=== PATIENT | female | born 1980 | race Caucasian/White ===

== ENCOUNTER 2017-02-19 16:20 | Emergency (ER) | payer MEDICAID ==
[~2017-02-19] VITALS: Ht 160 cm; Wt 77.1 kg
[~2017-02-19 16:20] MED LIST: NORCO5 PO; ONDA4TAB5 PO
[2017-02-19 16:32] VITALS: BP_SYST 131
[2017-02-19] MEDS ORDERED: MAG HYDROX/AL HYDROX/SIMETH 30 ML, BELLADONNA ALKALOIDS/PHENOBARB 10 ML, LIDOCAINE VISC... PO ONE ×3 (18:00)
[2017-02-19 19:00] VITALS: BP_SYST 131
== END 2017-02-19 19:00 | disposition home or self-care (01) ==
LOC: SED 16:20
DX: K29.70 Gastritis, unspecified, without bleeding (principal); J45.909 Unspecified asthma, uncomplicated
CPT/HCPCS: 81025; 93005; 99283; J2001

== ENCOUNTER 2017-11-16 00:56 | Emergency (ER) | payer MEDICAID ==
[~2017-11-16] VITALS: Ht 157.5 cm; Wt 84.8 kg
[2017-11-16 00:59] VITALS: BP_SYST 139
[2017-11-16] MEDS ORDERED: LevALBUTEROL HCL 1.25 MG/0.5 ML *CONC.* VIAL.NEB (XOPENEX CONC.) INH ONE (02:30)
[2017-11-16 02:57] VITALS: BP_SYST 139
[2017-11-16] MEDS ORDERED: IBUPROFEN 600 MG TABLET PO ONE (03:30)
== END 2017-11-16 02:57 | disposition home or self-care (01) ==
LOC: SED 00:56
DX: J45.901 Unspecified asthma with (acute) exacerbation (principal); T78.40XA Allergy, unspecified, initial encounter; K21.9 Gastro-esophageal reflux disease without esophagitis; Z90.49 Acquired absence of other specified parts of digestive tract; X58.XXXA Exposure to other specified factors, initial encounter
CPT/HCPCS: 81025; 94640; 99283

== ENCOUNTER 2018-01-22 21:30 | Emergency (ER) | payer MEDICAID ==
[~2018-01-22] VITALS: Ht 157.5 cm; Wt 82.6 kg
[2018-01-22 21:35] VITALS: BP_SYST 143
[2018-01-22 22:35] VITALS: BP_SYST 126
== END 2018-01-22 22:35 | disposition home or self-care (01) ==
LOC: SED 21:30
DX: J40 Bronchitis, not specified as acute or chronic (principal); H65.91 Unspecified nonsuppurative otitis media, right ear; H81.10 Benign paroxysmal vertigo, unspecified ear; K21.9 Gastro-esophageal reflux disease without esophagitis; J45.909 Unspecified asthma, uncomplicated; Z90.49 Acquired absence of other specified parts of digestive tract
CPT/HCPCS: 71046-TC; 99284

== ENCOUNTER 2018-11-01 10:58 | Emergency (ER) | payer MEDICAID ==
[~2018-11-01] VITALS: Ht 160 cm; Wt 81.6 kg
[2018-11-01 10:58] VITALS: BP_SYST 149
--- NOTE | 2018-11-01 10:58 | NUR ---
BROUGHT BACK TO BED #6 AND TRIAGED. WILL ASSUME CARE
[2018-11-01] MEDS ORDERED: NACL 0.9% 1,000 ML IV ONE (11:25)
[2018-11-01] MEDS ORDERED: IPRATROPIUM BROM 0.5 MG/2.5 ML VIAL.NEB (ATROVENT) IH ONE (11:30)
[2018-11-01] MEDS ORDERED: ALBUTEROL SULFATE 0.083% 2.5 MG/3 ML VIAL.NEB IH ONE (11:30)
[2018-11-01] MEDS ORDERED: methylPREDNISolone SOD SUCC/PF 62.5 MG/ML VIAL IVP ONE (11:30)
--- NOTE | 2018-11-01 11:30 | NUR ---
DR BLAKE AT BEDSIDE FOR EVALUATION
--- NOTE | 2018-11-01 11:45 | NUR ---
RESTING QUIETLY, NO CHANGES, FAMILY AT BEDSIDE FOR SUPPORT
[2018-11-01 12:00] LABS: BASOPHILS # (AUTO) 0.1 K/uL (0.0-0.2); BASOPHILS % (AUTO) 0.8 % (0.0-2.0); EOSINOPHILS # (AUTO) 0.3 K/uL (0.0-0.4); EOSINOPHILS % (AUTO) 3.4 % (0.0-4.0); HEMATOCRIT 43.5 % (36-48); HEMOGLOBIN 14.1 g/dL (12.0-16.0); LYMPHOCYTES # (AUTO) 2.3 K/uL (1.0-5.5); LYMPHOCYTES % (AUTO) 30.5 % (20.5-51.5); MEAN CORPUSCULAR HEMOGLOBIN 28 pg (27-31); MEAN CORPUSCULAR HGB CONC 33 % (32-36); MEAN CORPUSCULAR VOLUME 85 fL (79.0-98.0); MONOCYTES # (AUTO) 0.5 K/uL (0.0-1.0); MONOCYTES % (AUTO) 6.1 % (1.7-9.3); NEUTROPHILS # (AUTO) 4.5 K/uL (1.8-7.7); NEUTROPHILS % (AUTO) 59.2 % (40.0-70.0); PLATELET COUNT (AUTO) 350 K/uL (130-430); RED BLOOD CELL COUNT(AUTO) 5.09 MIL/uL (4.2-6.2); RED CELL DISTRIBUTION WIDTH 12.2 % (9.0-15.0); WHITE BLOOD COUNT (AUTO) 7.7 K/uL (4.8-10.8)
[2018-11-01 12:12] LABS: CALCIUM 9.3 mg/dL (8.4-11.0); CREATININE 0.81 mg/dL (0.55-1.30); POTASSIUM 3.7 mmol/L (3.5-5.1)
[2018-11-01 12:17] LABS: ALBUMIN 3.9 g/dL (3.4-4.8); TOTAL BILIRUBIN 0.3 mg/dL (0.0-1.0)
--- NOTE | 2018-11-01 12:37 | NUR ---
NO CHANGES. PT STATES SHE IS FEELING A LITTLE BETTER, ALL QUESTIONS ANSWERED.
--- NOTE | 2018-11-01 13:01 | NUR ---
DR BLAKE AT BEDSIDE SPEAKING WITH PT RE: TEST RESULTS.
[2018-11-01 13:36] VITALS: BP_SYST 123
--- NOTE | 2018-11-01 13:36 | NUR ---
Patient given written and verbal discharge instructions and verbalizes understanding. ER MD discussed with patient the results and treatment provided. Patient in stable condition. ID arm band removed. IV catheter removed intact and dressing applied, no active bleeding. Rx of benadryl and docycycline given. Patient educated on pain management and to follow up with PMD. Pain Scale 0/10. Opportunity for questions provided and answered. Medication side effect fact sheet provided.
== END 2018-11-01 13:36 | disposition home or self-care (01) ==
LOC: SED 10:58
DX: F41.9 Anxiety disorder, unspecified (principal); L73.9 Follicular disorder, unspecified; J45.909 Unspecified asthma, uncomplicated; K21.9 Gastro-esophageal reflux disease without esophagitis
CPT/HCPCS: 36415; 80053; 82150; 83690; 85025; 94640; 96361; 96374; 99283; J2930; J7030; J7613

== ENCOUNTER 2018-12-29 12:16 | Emergency (ER) | payer MEDICAID ==
[~2018-12-29] VITALS: Ht 160 cm; Wt 77.1 kg
[2018-12-29 12:30] VITALS: BP_SYST 155
[2018-12-29 13:19] VITALS: BP_SYST 144
== END 2018-12-29 13:18 | disposition home or self-care (01) ==
LOC: SED 12:16
DX: J06.9 Acute upper respiratory infection, unspecified (principal); J45.909 Unspecified asthma, uncomplicated; K21.9 Gastro-esophageal reflux disease without esophagitis; R03.0 Elevated blood-pressure reading, without diagnosis of hypertension; Z79.899 Other long term (current) drug therapy
CPT/HCPCS: 99283

== ENCOUNTER 2019-03-24 04:42 | Emergency (ER) | payer MEDICAID ==
[~2019-03-24] VITALS: Ht 157.5 cm; Wt 85.3 kg
[2019-03-24 04:59] VITALS: BP_SYST 118
--- NOTE | 2019-03-24 04:59 | NUR ---
Patient to ER bed 8 to gown for evaluation. Side rails up.
--- NOTE | 2019-03-24 05:04 | NUR ---
ER Dr. Giles at bedside examining patient.
[2019-03-24] MEDS ORDERED: NACL 0.9% 1,000 ML IV ONE (05:14)
[2019-03-24] MEDS ORDERED: ONDANSETRON HCL 4 MG/2 ML VIAL IVP ONE (05:15)
[2019-03-24] MEDS ORDERED: MORPHINE 2 MG/ML INJ. SYRINGE IVP ONE (05:15)
[2019-03-24 05:24] LABS: BILIRUBIN,URINE NEGATIVE (NEGATIVE); BLOOD, URINE NEGATIVE (NEGATIVE); CLARITY/URINE SL HAZY (CLEAR); COLOR,URINE YELLOW (YELLOW); GLUCOSE,URINE NEGATIVE (NEGATIVE); KETONES,URINE NEGATIVE (NEGATIVE); LEUKOCYTE ESTERASE ,URINE NEGATIVE (NEGATIVE); NITRITE, URINE NEGATIVE (NEGATIVE); PH,URINE 6.5 (5.0-8.0); PROTEIN URINE NEGATIVE (NEGATIVE); UROBILINOGEN,URINE 0.2 (0.2-1.0)
--- NOTE | 2019-03-24 05:48 | NUR ---
Medications were given, pt tolerated well. No adverse reaction, will continue to monitor.
[2019-03-24 05:53] LABS: BASOPHILS # (AUTO) 0.1 K/uL (0.0-0.2); BASOPHILS % (AUTO) 0.7 % (0.0-2.0); EOSINOPHILS # (AUTO) 0.5 K/uL (0.0-0.4); EOSINOPHILS % (AUTO) 4.7 % (0.0-4.0); HEMATOCRIT 39.6 % (36-48); HEMOGLOBIN 13.1 g/dL (12.0-16.0); LYMPHOCYTES # (AUTO) 3.5 K/uL (1.0-5.5); LYMPHOCYTES % (AUTO) 34.1 % (20.5-51.5); MEAN CORPUSCULAR HEMOGLOBIN 28 pg (27-31); MEAN CORPUSCULAR HGB CONC 33 % (32-36); MEAN CORPUSCULAR VOLUME 85 fL (79.0-98.0); MONOCYTES # (AUTO) 0.7 K/uL (0.0-1.0); MONOCYTES % (AUTO) 7.1 % (1.7-9.3); NEUTROPHILS # (AUTO) 5.5 K/uL (1.8-7.7); NEUTROPHILS % (AUTO) 53.4 % (40.0-70.0); PLATELET COUNT (AUTO) 269 K/uL (130-430); RED BLOOD CELL COUNT(AUTO) 4.64 MIL/uL (4.2-6.2); RED CELL DISTRIBUTION WIDTH 13.4 % (9.0-15.0); WHITE BLOOD COUNT (AUTO) 10.3 K/uL (4.8-10.8)
[2019-03-24 06:05] LABS: CALCIUM 8.9 mg/dL (8.4-11.0); CREATININE 0.7 mg/dL (0.55-1.30); POTASSIUM 4.3 mmol/L (3.5-5.1)
[2019-03-24 06:12] LABS: ALBUMIN 3.6 g/dL (3.4-4.8); TOTAL BILIRUBIN 0.2 mg/dL (0.0-1.0)
--- NOTE | 2019-03-24 06:28 | NUR ---
Pt reported her stomach was burning. Pt states she feels sweaty and pain increased to 8. Dr. Giles notified.
[2019-03-24] MEDS ORDERED: MAG HYDROX/AL HYDROX/SIMETH 30 ML, DICYCLOMINE HCL 20 MG, LIDOCAINE VISCOUS 2% 15ML (PO... PO ONE ×3 (06:30)
[2019-03-24] MEDS ORDERED: PANTOPRAZOLE SODIUM 40 MG/VIAL (PROTONIX) IVP ONE (06:30)
--- NOTE | 2019-03-24 06:35 | NUR ---
Medications were given, pt tolerated well. No adverse reaction, will continue to monitor.
[2019-03-24] MEDS ORDERED: MORPHINE 4 MG/ML INJ. SYRINGE IVP ONE (07:15)
--- NOTE | 2019-03-24 07:17 | NUR ---
Report given to TONJA Medrano. All care endorsed.
--- NOTE | 2019-03-24 07:18 | NUR ---
Recieved patient from [facility]. Patient still reports having pain, Dr. Giles has ordered another dose of Morphine. Patient reported still feeling pain after her first dose and does not know if it was due to the Morphine. Dr. Giles will give Benadryl with the Morphine. Will continue to medicate and assess.
[2019-03-24] MEDS ORDERED: DIPHENHYDRAMINE INJ 50 MG/ML VIAL IVP ONE (07:45)
--- NOTE | 2019-03-24 08:32 | NUR ---
Patient given written and verbal discharge instructions and verbalizes understanding. ER MD discussed with patient the results and treatment provided. Patient in stable condition. ID arm band removed. IV catheter removed intact and dressing applied, no active bleeding. Rx of Prilosec given. Patient educated on pain management and to follow up with PMD. Pain Scale 3/10. Opportunity for questions provided and answered. Medication side effect fact sheet provided.
[2019-03-24 08:33] VITALS: BP_SYST 108
== END 2019-03-24 08:32 | disposition home or self-care (01) ==
LOC: SED 04:42
DX: K29.70 Gastritis, unspecified, without bleeding (principal); J45.909 Unspecified asthma, uncomplicated; K21.9 Gastro-esophageal reflux disease without esophagitis; Z79.899 Other long term (current) drug therapy
CPT/HCPCS: 36415; 74021; 80053; 81003; 83690; 85025; 96361; 96374; 96375; 96376; 99284; C9113; J1200; J2001; J2270 ×2; J2405; J7030

== ENCOUNTER 2020-09-28 15:03 | Emergency (ER) | payer MEDICAID, SELFPAY ==
[~2020-09-28] VITALS: Ht 157.5 cm; Wt 86.2 kg
--- NOTE | 2020-09-28 15:05 | NUR ---
ER Dr. Torrez at bedside examining patient.
--- NOTE | 2020-09-28 15:05 | NUR ---
Pt walked in to ER with c/o flu-like symptoms, SOB and h/o asthma. V/S stable, pt is afebrile. Currently sitting in tent, will continue to monitor.
[2020-09-28 15:08] VITALS: BP_SYST 164
--- NOTE | 2020-09-28 15:10 | NUR ---
Pt to radiology for CXR
[2020-09-28] MEDS ORDERED: ALBUTEROL MDI INHALATION 8 GM INH INH PRN (15:15)
[2020-09-28] MEDS ORDERED: IPRATROPIUM/ALBUTEROL SULFATE 3 ML AMPUL.NEB (DUONEB) ONE (15:20)
[2020-09-28] MEDS ORDERED: IPRATROPIUM/ALBUTEROL SULFATE 3 ML AMPUL.NEB (DUONEB) INH ONE (15:30)
[2020-09-28] MEDS ORDERED: predniSONE 20 MG TABLET PO ONE (16:15)
[2020-09-28] MEDS ORDERED: ALBUTEROL SULFATE 0.083% 2.5 MG/3 ML VIAL.NEB INH ONE (16:15)
--- NOTE | 2020-09-28 16:30 | NUR ---
Nasal swab obtained to r/o bonnie pt tolerated well. Sample sent to lab.
--- NOTE | 2020-09-28 16:32 | NUR ---
Respiratory with patient for breathing treatment.
[2020-09-28 17:26] VITALS: BP_SYST 164
--- NOTE | 2020-09-28 17:27 | NUR ---
Patient given written and verbal discharge instructions and verbalizes understanding. ER MD discussed with patient the results and treatment provided. Patient in stable condition. ID arm band removed. Rx of Albuterol and Prednisone given. Patient educated on pain management and to follow up with PMD. Pain Scale 0. Opportunity for questions provided and answered. Medication side effect fact sheet provided.
== END 2020-09-28 17:27 | disposition home or self-care (01) ==
LOC: SED 15:03
DX: J45.901 Unspecified asthma with (acute) exacerbation (principal); K21.9 Gastro-esophageal reflux disease without esophagitis; Z79.899 Other long term (current) drug therapy
CPT/HCPCS: 71045; 81002; 94640; 99285; J7512; U0003; C9803

== ENCOUNTER 2022-09-06 11:19 | Emergency (ER) | payer MEDICAID ==
[~2022-09-06] VITALS: Ht 157.5 cm; Wt 86.2 kg
[2022-09-06 11:20] VITALS: BP_SYST 134
--- NOTE | 2022-09-06 12:00 | NUR ---
Pt brought by self, A&Ox4, pt presents to ER with cough/congestion and generalized itching, skin pink and warm, respirations even and unlabored, will cont to monitor
--- NOTE | 2022-09-06 12:20 | NUR ---
Dr Acharya evaluating patient at bedside
[2022-09-06 13:06] LABS: BASOPHILS # (AUTO) 0.1 K/uL (0.0-0.2); BASOPHILS % (AUTO) 0.8 % (0.0-2.0); EOSINOPHILS # (AUTO) 0.1 K/uL (0.0-0.4); EOSINOPHILS % (AUTO) 1.2 % (0.0-4.0); HEMATOCRIT 38.4 % (36-48); HEMOGLOBIN 13.2 g/dL (12.0-16.0); LYMPHOCYTES # (AUTO) 1.5 K/uL (1.0-5.5); LYMPHOCYTES % (AUTO) 12.4 % (20.5-51.5); MEAN CORPUSCULAR HEMOGLOBIN 29 pg (27-31); MEAN CORPUSCULAR HGB CONC 34 % (32-36); MEAN CORPUSCULAR VOLUME 83 fL (79.0-98.0); MONOCYTES # (AUTO) 0.6 K/uL (0.0-1.0); MONOCYTES % (AUTO) 5.1 % (1.7-9.3); NEUTROPHILS # (AUTO) 9.7 K/uL (1.8-7.7); NEUTROPHILS % (AUTO) 80.5 % (40.0-70.0); PLATELET COUNT (AUTO) 312 K/uL (130-430); RED BLOOD CELL COUNT(AUTO) 4.62 MIL/uL (4.2-6.2); RED CELL DISTRIBUTION WIDTH 12.9 % (9.0-15.0)
[2022-09-06 13:28] LABS: ALBUMIN 3.7 g/dL (3.4-4.8); CALCIUM 8.9 mg/dL (8.4-11.0); CREATININE 0.76 mg/dL (0.55-1.30); TOTAL BILIRUBIN 0.3 mg/dL (0.0-1.0)
[2022-09-06] MEDS ORDERED: HYDC2.5% TP (13:42)
[2022-09-06 14:16] VITALS: BP_SYST 134
--- NOTE | 2022-09-06 14:16 | NUR ---
Patient given written and verbal discharge instructions and verbalizes understanding. ER MD discussed with patient the results and treatment provided. Patient in stable condition. ID arm band removed. Rx of Hydrocortisone given. Patient educated on pain management and to follow up with PMD. Pain Scale 0/10 . Opportunity for questions provided and answered. Medication side effect fact sheet provided.
== END 2022-09-06 14:19 | disposition home or self-care (01) ==
LOC: SED 11:19
DX: B34.9 Viral infection, unspecified (principal); R21 Rash and other nonspecific skin eruption; R05.9 Cough, unspecified; R50.9 Fever, unspecified; M79.10 Myalgia, unspecified site; J45.909 Unspecified asthma, uncomplicated; Z79.899 Other long term (current) drug therapy
CPT/HCPCS: 36415; 71045; 80053; 85025; 93005; 99285

== ENCOUNTER 2024-08-09 21:58 | Emergency (ER) | payer MEDICAID ==
[~2024-08-09] VITALS: Ht 160 cm; Wt 85.7 kg
[~2024-08-09 21:58] MED LIST changes: +HYDC2.5% TP
[2024-08-09 22:03] VITALS: BP_SYST 139; PULSE 94; RESP 18; TEMP 97.2; O2SAT 97
[2024-08-09] MEDS: NACL 0.9% 1,000 ML IV ONE (23:27)
[2024-08-09] MEDS: ONDANSETRON HCL 4 MG/2 ML VIAL IVP ONE (23:33)
[2024-08-10 00:30] LABS: BASOPHILS % (AUTO) 0.2 % (0.0-2.0); EOSINOPHILS # (AUTO) 0.1 K/uL (0.0-0.4); EOSINOPHILS % (AUTO) 1.1 % (0.0-4.0); HEMOGLOBIN 12.9 g/dL (12.0-16.0); LYMPHOCYTES # (AUTO) 0.8 K/uL (1.0-5.5); LYMPHOCYTES % (AUTO) 5.9 % (20.5-51.5); MEAN CORPUSCULAR HEMOGLOBIN 29 pg (27-31); MEAN CORPUSCULAR HGB CONC 34 % (32-36); MEAN CORPUSCULAR VOLUME 84 fL (79.0-98.0); MONOCYTES # (AUTO) 0.5 K/uL (0.0-1.0); MONOCYTES % (AUTO) 3.7 % (1.7-9.3); NEUTROPHILS # (AUTO) 12.4 K/uL (1.8-7.7); NEUTROPHILS % (AUTO) 89.1 % (40.0-70.0); PLATELET COUNT (AUTO) 280 K/uL (130-430); RED BLOOD CELL COUNT(AUTO) 4.52 MIL/uL (4.2-6.2); RED CELL DISTRIBUTION WIDTH 13.3 % (9.0-15.0); WHITE BLOOD COUNT (AUTO) 13.9 K/uL (4.8-10.8)
[2024-08-10 00:36] LABS: ALBUMIN 3.6 g/dL (3.4-4.8); BILIRUBIN,DIRECT 0.1 mg/dL (0.0-0.3); CALCIUM 8.2 mg/dL (8.4-11.0); CREATININE 0.86 mg/dL (0.55-1.30); POTASSIUM 4.3 mmol/L (3.5-5.1); TOTAL BILIRUBIN 0.5 mg/dL (0.0-1.0); TOTAL PROTEIN, SERUM 6.7 g/dL (6.4-8.3)
[2024-08-10] MEDS: KETOROLAC TROMETHAMINE 30 MG VIAL IVP ONE (01:07)
[2024-08-10] MEDS ORDERED: KETOROLAC TROMETHAMINE 30 MG VIAL ONE (01:07)
[2024-08-10 01:25] LABS: BILIRUBIN,URINE NEGATIVE (NEGATIVE); BLOOD, URINE NEGATIVE (NEGATIVE); CLARITY/URINE CLEAR (CLEAR); COLOR,URINE YELLOW (YELLOW); GLUCOSE,URINE NEGATIVE (NEGATIVE); KETONES,URINE NEGATIVE (NEGATIVE); LEUKOCYTE ESTERASE ,URINE NEGATIVE (NEGATIVE); NITRITE, URINE NEGATIVE (NEGATIVE); PROTEIN URINE NEGATIVE (NEGATIVE); UROBILINOGEN,URINE 0.2 (0.2-1.0)
[2024-08-10] MEDS ORDERED: ONDA-8 TL (01:58)
[2024-08-10 02:19] VITALS: BP_SYST 136; PULSE 78; RESP 19; TEMP 98.1; O2SAT 98
== END 2024-08-10 02:39 | disposition home or self-care (01) ==
LOC: SED 21:58
DX: K52.9 Noninfective gastroenteritis and colitis, unspecified (principal); G43.909 Migraine, unspecified, not intractable, without status migrainosus; J45.909 Unspecified asthma, uncomplicated; K21.9 Gastro-esophageal reflux disease without esophagitis; Z87.19 Personal history of other diseases of the digestive system; Z90.49 Acquired absence of other specified parts of digestive tract
CPT/HCPCS: 36415; 80048; 80076; 81001; 81003; 81025; 83690; 85025; 93005; 96361; 96374; 96375; 99284; J1885; J2405; J7030